=== PATIENT | male | born 1970 | race Caucasian/White ===

== ENCOUNTER 2024-10-17 08:41 | Outpatient (CLI) | payer BC, SELFPAY ==
--- OUTSIDE RECORDS SUMMARY | 2024-10-17 09:02 | XMS_ITS | Encounter Summary ---
[facility] Organization [facility] Address [address] [place] [address] Care Team Providers Care Clinique Counter Manager Name Role Phone Unavailable Primary Care Provider Unavailabl e Encounter Details Date Type Department Care Team (Late st Contact Info) Description 10/16/2024 External Device Data [facility] Provider, Abstract NO ADDRESS ON FILE Social History Tobacco Use Types Packs/Day Years Used Date Smoking Tobacco: Never Assessed Sex and Gender Information Value Date Recorded Sex Assigned at Not on file Legal Sex Male 3:23 PM CDT Gender Identity Not on file Sexual Orientation Not on file documented as of this encounter Plan of Treatment Not on file documented as of this encounter Visit Diagnoses Not on filedocumented in this encounter
--- OUTSIDE RECORDS SUMMARY | 2024-10-17 09:02 | XMS_ITS | Clinical Summary ---
Author Organization [facility] Address [address] Attn: [place] [address] Care Team Providers Care C.O.D. Audit Clerk Name Role Phone Unavailable Primary Care Provider Unavailabl e Allergies No known active allergies Medications atorvastatin (LIPITOR) 10 mg tablet Take 1 Tablet (10 mg) by mouth daily. 90 Tablet 1 06/20/2024 5:01 PM FAMILY LAW SPECIALIST 06/20/2024 Active atorvastatin (LIPITOR) 10 mg tablet Take 1 Tablet (10 mg) by mouth daily. 90 Tablet 1 09/17/2024 4:22 PM FAMILY LAW SPECIALIST 09/14/2024 Active lisinopriL (PRINIVIL) 40 mg tablet Take 1 Tablet (40 mg) by mouth daily. 90 Tablet 1 09/17/2024 4:22 PM FAMILY LAW SPECIALIST 09/14/2024 Active Encounters Date Type Department Care Team Description 10/16/2024 External Device Data [facility] Provider, Abstract 09/18/2024 External Device Data [facility] Provider, Abstract 08/21/2024 External Device Data [facility] Provider, Abstract from Last 3 Months Social History Tobacco Use Types Packs/Day Years Used Date Smoking Tobacco: Never Assessed Sex and Gender Information Value Date Recorded Sex Assigned at Not on file Legal Sex Male 3:23 PM CDT Gender Identity Not on file Sexual Orientation Not on file Plan of Treatment Health Maintenance Due Date Last Done Comments DTAP/TDAP/TD VACCINES (1 - Tdap) 11/30/1987 HEPATITIS B VACCINES (1 of 3 - 19+ 3-dose series) 11/30/1987 COLORECTAL SCREENING 2013 Colorectal Cancer Screening 2013 FIT-DNA Q 3 years 2013 FIT/FOBT Q 1 year 2013 Flex Sig/CT Colonography Q 5 years 2013 ZOSTER VACCINE (1 of 2) 2018 INFLUENZA VACCINE (#1) 2024 PNEUMOCOCCAL VACCINE 0-49 YEARS Aged Out No longer eligible based on patient's age to complete this topic Insurance RX LOYA PLANS (INTERNAL) [facility] [employer] RX [facility] [employer]
[2024-10-17 13:30] LABS: Kit Draw Collected
== END 2024-10-17 08:42 | disposition home or self-care (01) ==
LOC: ANHGOSHLAB 08:42
PROVIDERS: PCP Clinical Nurse Specialist; Visit Provider Clinical Nurse Specialist
DX: Z76.89 Persons encountering health services in other specified circumstances (principal)
CPT/HCPCS: 36415

== ENCOUNTER 2025-02-14 01:45 | Day surgery (SDC) | payer BC, SELFPAY ==
[2025-02-06 10:30] VITALS: BMI 37.9
--- OUTSIDE RECORDS SUMMARY | 2025-02-14 01:47 | XMS_ITS | Clinical Summary ---
Author Organization [facility] Address [address] Attn: [place] [address] Care Team Providers Care Church Administrator Name Role Phone Unavailable Primary Care Provider Unavailabl e Allergies No known active allergies Medications atorvastatin (LIPITOR) 10 mg tablet Take 1 Tablet (10 mg) by mouth daily. 90 Tablet 1 06/20/2024 5:01 PM DRYWALL MECHANIC 06/20/2024 Active atorvastatin (LIPITOR) 10 mg tablet Take 1 Tablet (10 mg) by mouth daily. 90 Tablet 1 12/30/2024 1:53 PM CDT 09/14/2024 Active lisinopriL (PRINIVIL) 40 mg tablet Take 1 Tablet (40 mg) by mouth daily. 90 Tablet 1 12/30/2024 1:53 PM CDT 09/14/2024 Active Encounters Date Type Department Care Team Description 01/29/2025 External Device Data [facility] Provider, Abstract [...] (1 of 3 - 19+ 3-dose series) 11/07 COLORECTAL SCREENING 2013 Colorectal Cancer Screening 2013 FIT-DNA Q 3 years 2013 FIT/FOBT Q 1 year 2013 Flex Sig/CT Colonography Q 5 years 2013 ZOSTER VACCINE (1 of 2) 2018 INFLUENZA VACCINE (#1) 2025 Insurance RX LOYA PLANS (INTERNAL) [facility] [employer] [facility] [employer]
[2025-02-14 07:49] VITALS: BP 135/88; PULSE 61; RESP 20; TEMP 36; O2SAT 98; BMI 36.8
[2025-02-14] MEDS: LACTATED RINGERS 1,000 ML 150 ML IV CONT (07:57)
--- NOTE | 2025-02-14 08:52 | P.HP_ITS ---
H&P: HPI History of Present Illness Date/Time: 02/14/25 08:52 Chief Complaint: Screening colonoscopy Narrative: This is the patient's first colonoscopy. There are no GI symptoms and there is no family history of colorectal cancer. Review of Systems Review of Systems: All systems reviewed & are unremarkable except as noted in HPI and below [facility] Past Medical History Medical History (Updated 10/24/24 @ 09:52 by JANNETH WhitneyC) Lump of skin of left lower extremity COVID-19 HTN (hypertension) Family History Family History Mother Hypertension Cerebrovascular accident Grandparent Acute myocardial infarction Dementia Sibling Cancer Social History Social History Social History: Caffeine- Coffee daily Smoking status: Never smoker Alcohol intake: current Substance use: never Substance use type: does not use Lack of Transportation: No Lack of Food: Never True Current Housing: I Have Housing Concerned About Future Housing: No Difficulty Paying Gas/Electric Bills: No Difficulty Paying for Meds: No Currently Unemployed: No Education: Bachelor's Degree Difficulty w/ Childcare or Family Care: No Living arrangements: with family Spiritual care concerns: No Meds Home Medications and Allergies Home Medications ?Medication ?Instructions ?Recorded ?Confirmed ?Type aspirin 81 mg tablet,delayed 81 mg PO DAILY 07/09/20 02/14/25 History release (Adult Low Dose Aspirin) atorvastatin 10 mg tablet 10 mg PO DAILY #90 tabs 09/14/24 02/14/25 Rx lisinopril 40 mg tablet 40 mg PO DAILY #90 tabs 09/14/24 02/14/25 Rx loratadine 10 mg tablet (Claritin) 10 mg PO DAILY PRN allergy symptoms 10/17/24 02/06/25 History Allergies Allergy/AdvReac Type Severity Reaction Status Date / Time No Known Allergies Allergy Verified 02/14/25 07:48 Vital Signs Vital Signs - 24 hr 02/14/25 07:49 Temperature 96.8 F L Pulse Rate 61 Respiratory Rate 20 Blood Pressure 135/88 Pulse Oximetry 98 Oxygen Delivery Room Air Exam Const: General: cooperative and healthy appearing Resp: Effort & Inspection: normal respiratory effort and able to speak in complete sentences Auscultation: clear to auscultation bilaterally Cardio: Rate: regular rate Rhythm: regular rhythm GI: Inspection: normal to inspection GI Palp: No No hepatosplenomegaly present Auscultation: normal bowel sounds Rectal Exam: deferred Skin: General skin exam: normal color Psych: Appearance: grossly normal Mental Status: mental status grossly normal Assessment and Plan Assessment and plan (1) Screening for colon cancer: Code(s): Z12.11 - Encounter for screening for malignant neoplasm of colon Status: Acute Assessment and Plan: The patient is deemed a good candidate for the procedure. Consent signed. Will proceed.
--- NOTE | 2025-02-14 08:58 | WPDANESEPPF ---
Anes - Initial Pre Proc Eval Procedure: Operation Date: 02/14/25 09:00 Proposed Procedures p Screening Colonoscopy - Jose Heath MD Date/Time: 02/14/25 08:58 Surgeon: Jose Heath MD Pre Op Diagnosis: Screening Patient Data Age: 54 Gender: M Height: 1.75 m Weight: 113 kg Last Vital Signs Temp 96.8 F L 02/14/25 07:49 Pulse 61 02/14/25 07:49 Resp 20 02/14/25 07:49 BP 135/88 02/14/25 07:49 Pulse Ox 98 02/14/25 07:49 O2 Del Method Room Air 02/14/25 07:49 Allergies Allergy/AdvReac Type Severity Reaction Status Date / Time No Known Allergies Allergy Verified 02/14/25 07:48 Home Medications ?Medication ?Instructions ?Recorded ?Confirmed ?Type aspirin 81 mg tablet,delayed 81 mg PO DAILY 07/09/20 02/14/25 History release (Adult Low Dose Aspirin) atorvastatin 10 mg tablet 10 mg PO DAILY #90 tabs 09/14/24 02/14/25 Rx lisinopril 40 mg tablet 40 mg PO DAILY #90 tabs 09/14/24 02/14/25 Rx loratadine 10 mg tablet (Claritin) 10 mg PO DAILY PRN allergy symptoms 10/17/24 02/06/25 History Patient hx anesthesia problems: none Family hx anesthesia problems: none Results Review: All pre-operative results and documents have been reviewed as part of the pre-operative evaluation. [facility] Past Medical History Medical History Lump of skin of left lower extremity COVID-19 HTN (hypertension) Family History Family History Mother Hypertension Cerebrovascular accident Grandparent Acute myocardial infarction Dementia Sibling Cancer Social History Social History Social History: Caffeine- Coffee daily Smoking status: Never smoker Alcohol intake: current Substance use: never Substance use type: does not use Lack of Transportation: No Lack of Food: Never True Current Housing: I Have Housing Concerned About Future Housing: No Difficulty Paying Gas/Electric Bills: No Difficulty Paying for Meds: No Currently Unemployed: No Education: Bachelor's Degree Difficulty w/ Childcare or Family Care: No Living arrangements: with family Spiritual care concerns: No Anes - Eval Final PreProcedure Day of Procedure 02/14/25 08:58 Patient weight: obese Lungs: normal air movement Airway: Mallampati scale class II Neurological: alert and oriented Last oral intake: >/= 8 hours ASA classification: II Emergent: no Anesthetic plan: proceed Anesthesia type and monitoring: general GIVS and standard monitoring Results Review: All pre-operative results and documents have been reviewed as part of the pre-operative evaluation. HTN, hyperlipidemia, obesity, suspect SUAD but never had sleep study. Pt walks 6 miles/day, no cp or sob. Informed Consent: The patient's anesthetic plan and its attendant risks and benefits were discussed with the patient/family/POA. Questions were solicited and answers provided to the satisfaction of the patient/family/POA.
--- NOTE | 2025-02-14 09:14 | S_PTH ---
PATIENT: Vaughn Mosley LOC: [facility] U#:[id number] AGE/SX: 54/M ROOM: RE02/14/[address]: Jose Heath MD : [id number] BED: DIS: 02/14/2025 SPEC #: [id number] RECD: 02/14/25 13:00 STATUS: OBI CASTRO #: [id number] [place]: 02/14/25 09:[address]: Jose Heath DEPT: [facility] Surgical RECD BY: Bethany Rand ENTERED: 02/14/25 13:01 SP TYPE: Surgical OTHR DR: Simran Poe, ERASMO Tissues: A - Colon Polypectomy Procedures: Hematoxylin and Eosin Stain Gross and Microscopic Level 4
[2025-02-14 09:17] VITALS: BP 122/89; PULSE 53; RESP 19; O2SAT 95
[2025-02-14 09:27] VITALS: BP 122/82; PULSE 56; RESP 16; O2SAT 100
[2025-02-14 09:37] VITALS: BP 132/85; PULSE 52; RESP 16; O2SAT 98
== END 2025-02-14 09:51 | disposition home or self-care (01) ==
PROVIDERS: PCP Clinical Nurse Specialist; Referring Provider Clinical Nurse Specialist; Visit Provider Internal Medicine Gastroenterology
PROC: 0DJD8ZZ Inspection of Lower Intestinal Tract, Via Natural or Artificial Opening Endoscopic (ICD-10-PCS; CPT 45378; principal; 2025-02-14 09:00)
DX: Z12.11 Encounter for screening for malignant neoplasm of colon (principal); K62.1 Rectal polyp; I10 Essential (primary) hypertension; E78.5 Hyperlipidemia, unspecified; Z79.82 Long term (current) use of aspirin; Z80.9 Family history of malignant neoplasm, unspecified; Z82.49 Family history of ischemic heart disease and other diseases of the circulatory system
CPT/HCPCS: 45385; 88305; J2003; J2704; J7120